=== PATIENT | female | born 1960 | race African-American/Black ===

== ENCOUNTER 2023-11-30 10:59 | Emergency (ER) | payer MEDICAID ==
[~2023-11-30] VITALS: Ht 172.7 cm; Wt 64.0 kg
[2023-11-30 11:13] VITALS: TEMP 98; O2SAT 99
[2023-11-30] MEDS ORDERED: LEVETIRACETAM 500MG PREMIX 100 ML IV ONE (12:15)
[2023-11-30 14:25] LABS: CHLORIDE 106 mEq/L (98-107); POTASSIUM 3.3 mEq/L (3.5-5.1); SODIUM 139 mEq/L (136-145)
[2023-11-30 14:26] LABS: CARBON DIOXIDE 28 mEq/L (21-32)
[2023-11-30 14:32] LABS: BASOPHILS % 1.3 % (0.0-2.0); CREATININE 0.8 mg/dL (0.6-1.0); EOSINOPHILS % 2.3 % (0.0-5.0); GLUCOSE 90 mg/dL (70-105); HEMATOCRIT. 38.9 % (36.0-48.0); HEMOGLOBIN. 12.9 g/dL (12.0-16.0); LYMPHOCYTES % 33.4 % (20.0-50.0); MEAN CORPUSCULAR HEMOGLOBIN 29.2 pg (28.0-32.0); MEAN CORPUSCULAR HGB CONC 33.3 g/dL (31.0-37.0); MEAN CORPUSCULAR VOLUME 87.6 fL (81.0-99.0); MEAN PLATELET VOLUME 6.9 fl (7.4-10.4); MONOCYTES % 5.7 % (2.0-8.0); NEUTROPHILS % 57.3 % (40.0-76.0); PLATELET 252 x1000/uL (130-400); RED BLOOD CELL COUNT 4.44 mill/uL (4.2-5.4); RED CELL DISTRIBUTION WIDTH 16.3 % (11.6-14.6); UREA NITROGEN BLOOD 11 mg/dL (9-23); WHITE BLOOD COUNT 6.9 x1000/uL (4.5-11.0)
[2023-11-30 14:37] LABS: THYROID STIMULATING HORMONE 0.93 uIU/mL (0.55-4.78)
[2023-11-30] MEDS: LEVETIRACETAM 500MG PREMIX 100 ML IV NR (14:40)
[2023-11-30 15:08] LABS: AMMONIA < 17 uMol/L (<32)
[2023-11-30 16:05] LABS: ETHANOL BLOOD < 10 mg/dL (<10)
[2023-11-30 18:35] VITALS: BP 139/86; PULSE 95; RESP 17
== END 2023-11-30 18:54 ==
LOC: ER 10:59 → EDBEDREQ 16:46 → EDBEDREQSVC 16:46 → EDBEDREQTM 16:46 → CANBEDREQ 16:58 → ER 18:54
DX: R56.9 Unspecified convulsions (principal); F19.90 Other psychoactive substance use, unspecified, uncomplicated; E78.00 Pure hypercholesterolemia, unspecified; I10 Essential (primary) hypertension
CPT/HCPCS: 80048; 80320; 82140; 84443; 85025; 36415; 96365; 99285; J1953; G0480